=== PATIENT | female | born 1970 | race Caucasian/White ===

== ENCOUNTER 2017-02-13 13:00 | Emergency (ER) | payer MEDICAID, OTHER ==
[~2017-02-13] VITALS: Ht 165.1 cm; Wt 90.7 kg
[~2017-02-13 13:00] MED LIST: ATIVAN2 M1 PO; BENADRYL50 MG PO; CLONAZEPAM2 MG PO; GEODON40 MG PO; HALDOL PO; KLONOPIN2 MG PO; LAMICTAL25 M1 PO; LITHIUM CARBON300 MG PO; LITHIUM CARBON600 MG PO; SEROQUEL200 MG PO; SEROQUEL400 MG PO; TRAZODONE HCL100 MG PO; TYLENOL #31 TAB PO
--- NOTE | 2017-02-13 13:09 | NUR ---
PT IS IN ROOM #2A. DR PENA EVALUATED THE PT.
--- NOTE | 2017-02-13 13:22 | NUR ---
PT WAS D/C TO HOME. D/C INSTRUCTIONS GIVEN TO THE PT.
[2017-02-13 13:23] VITALS: BP 139/86; PULSE 78; RESP 15; O2SAT 98
== END 2017-02-13 13:24 | disposition home or self-care (01) ==
LOC: ER 13:00
DX: M25.571 Pain in right ankle and joints of right foot (principal); G89.29 Other chronic pain; F41.9 Anxiety disorder, unspecified; F31.9 Bipolar disorder, unspecified; F11.23 Opioid dependence with withdrawal; Y92.89 Other specified places as the place of occurrence of the external cause
CPT/HCPCS: 99283; A4663

== ENCOUNTER 2017-03-02 19:59 | Emergency (ER) | payer MEDICAID ==
[~2017-03-02] VITALS: Ht 165.1 cm; Wt 90.7 kg
[~2017-03-02 19:59] MED LIST changes: -ATIVAN2 M1 PO; -BENADRYL50 MG PO; +CLON2TAB PO; -CLONAZEPAM2 MG PO; -GEODON40 MG PO; -HALDOL PO; -KLONOPIN2 MG PO; -LAMICTAL25 M1 PO; +LITH300C2 PO; +LITH600C PO; -LITHIUM CARBON300 MG PO; -LITHIUM CARBON600 MG PO; +LORA2TAB95 PO; +QUET400T PO; -SEROQUEL200 MG PO; -SEROQUEL400 MG PO; -TRAZODONE HCL100 MG PO; -TYLENOL #31 TAB PO
[2017-03-02] MEDS ORDERED: NITROGLYCERIN 0.4 MG/TAB BOTTLE SL ONE ×2 (20:45→20:56)
[2017-03-02] MEDS ORDERED: ASPIRIN 325 MG TABLET PO ONE (20:45)
[2017-03-02 20:56] LABS: BASOPHILS % (AUTO) 0.3 % (0.0-2.0); EOSINOPHILS # (AUTO) 0.3 K/uL (0.0-0.7); EOSINOPHILS % (AUTO) 3.7 % (0.0-7.0); HEMATOCRIT 39.8 % (37-47); HEMOGLOBIN 13.1 G/DL (12.0-16.0); LYMPHOCYTES % (AUTO) 29.3 % (20.5-51.5); MEAN CORPUSCULAR HEMOGLOBIN 29.1 UUG (27.0-31.0); MEAN CORPUSCULAR HGB CONC 33 g/dL (32.0-37.0); MEAN CORPUSCULAR VOLUME 88.9 FL (81.0-99.0); MONOCYTES # (AUTO) 0.6 K/UL (0.1-1.30); MONOCYTES % (AUTO) 8.6 % (0.0-11.0); NEUTROPHILS # (AUTO) 3.9 K/UL (1.8-8.9); NEUTROPHILS % (AUTO) 58.1 % (38.5-71.5); PLATELET COUNT (AUTO) 292 K/UL (150-450); RED BLOOD CELL COUNT(AUTO) 4.48 MIL/UL (4.2-5.4); WHITE BLOOD COUNT (AUTO) 6.8 K/UL (4.0-11.2)
[2017-03-02] MEDS ORDERED: ASPIRIN 325 MG TABLET ONE (20:56)
[2017-03-02 21:07] LABS: CREATININE 0.7 mg/dL (0.6-1.3); POTASSIUM 3.8 mmol/L (3.5-5.1)
[2017-03-02 21:19] LABS: BILIRUBIN,DIRECT 0.1 mg/dL (0.0-0.2); BILIRUBIN,TOTAL 0.2 mg/dL (0.2-1.0); TOTAL PROTEIN, SERUM 7.5 g/dL (6.4-8.2)
[2017-03-02] MEDS ORDERED: GABAPENTIN 300 MG CAPSULE PO ONE (21:45)
--- NOTE | 2017-03-02 21:57 | NUR ---
Patient does not wish to proceed with medical care recommended by Dr. ARIAS. Patient given information related to possible complications, up to and including , which could occur as a result of leaving the hospital at this time. Patient verbalizes understanding of risks involved due to leaving against medical advice. Patient has signed AMA form.
[2017-03-02 21:58] VITALS: BP 98/71
[2017-03-02] MEDS ORDERED: GABAPENTIN 300 MG CAPSULE ONE (21:58)
== END 2017-03-02 21:59 | disposition left against medical advice (07) ==
LOC: ER 20:03
DX: R07.9 Chest pain, unspecified (principal); F31.9 Bipolar disorder, unspecified; F41.9 Anxiety disorder, unspecified; M54.9 Dorsalgia, unspecified; M25.571 Pain in right ankle and joints of right foot; Z88.6 Allergy status to analgesic agent; Z88.8 Allergy status to other drugs, medicaments and biological substances
CPT/HCPCS: 36415; 70030-TC; 71010; 73590; 84703; 85025; 85730; 93005; A4663

== ENCOUNTER 2017-05-17 15:09 | Emergency (ER) | payer MEDICAID ==
[~2017-05-17] VITALS: Ht 165.1 cm; Wt 86.2 kg
--- NOTE | 2017-05-17 15:26 | NUR ---
Patient is seen eating snacks from the ER coffee cart with very good appetite, NAD, pending MD evaluation.
--- NOTE | 2017-05-17 15:52 | NUR ---
Patient discharged to home in stable conditon. Written and verbal after care instructions given to patient. Patient verbalizes understanding of instructions.
== END 2017-05-17 15:53 | disposition home or self-care (01) ==
LOC: ER 15:10
DX: F31.9 Bipolar disorder, unspecified (principal); G47.00 Insomnia, unspecified; F41.9 Anxiety disorder, unspecified
CPT/HCPCS: 99283; A4663

== ENCOUNTER 2017-07-05 12:54 | Emergency (ER) | payer OTHER ==
--- NOTE | 2017-07-05 13:24 | NUR ---
INITIALLY CALLED FOR TRIAGE, NOT IN WAITING ROOM .
== END 2017-07-13 09:11 | disposition left against medical advice (07) ==
LOC: ER 12:54
DX: Z53.21 Procedure and treatment not carried out due to patient leaving prior to being seen by health care provider (principal)

== ENCOUNTER 2017-07-14 10:59 | Emergency (ER) | payer OTHER ==
[~2017-07-14] VITALS: Ht 165.1 cm; Wt 85.3 kg
[2017-07-14] MEDS ORDERED: IBUPROFEN 800 MG TABLET PO ONE (12:15)
[2017-07-14] MEDS ORDERED: IBUPROFEN 800 MG TABLET ONE (12:43)
[2017-07-14 13:12] VITALS: BP 129/89
--- NOTE | 2017-07-14 13:12 | NUR ---
Patient discharged to home in stable conditon. Written and verbal after care instructions given. Patient verbalizes understanding of instructions.pt walks in steady gait, pt says relief of pain
== END 2017-07-14 13:15 | disposition home or self-care (01) ==
LOC: ER 11:18
DX: S93.401A Sprain of unspecified ligament of right ankle, initial encounter (principal); Z88.6 Allergy status to analgesic agent; X50.9XXA Other and unspecified overexertion or strenuous movements or postures, initial encounter; Y93.89 Activity, other specified; Y92.9 Unspecified place or not applicable; Y99.9 Unspecified external cause status
CPT/HCPCS: 73600; 99284; A4663

== ENCOUNTER 2018-02-19 17:17 | Emergency (ER) | payer OTHER ==
[~2018-02-19] VITALS: Ht 165.1 cm; Wt 83.9 kg
[2018-02-19] MEDS ORDERED: HALO10TA13 PO (17:25)
--- NOTE | 2018-02-19 17:25 | NUR ---
Patient is AOx4 and said, "No visitors for me ." All ER staff were notified re: patient's request and preference.
--- NOTE | 2018-02-19 18:00 | NUR ---
Patient is AOx4, respiration:easy, intermittently answers to questions regarding her medical history. Patient is seen holding her hands up at chest level & poses in that position for few seconds, no tremors of extremities or body seen.
[2018-02-19 18:13] LABS: *BILIRUBIN,URIN NEGATIVE (NEGATIVE); *BLOOD, URINE 2+ (NEGATIVE); *CLARITY,URINE CLOUDY (CLEAR); *COLOR,URINE YELLOW (YELLOW); *KETONES,URINE 1+ (NEGATIVE); *PROTEIN,URINE 1+ (NEGATIVE); *UROBILINOGEN,URINE 0.2 E.U./dl (NORMAL); LEUKOCYTE ESTERASE ,URINE 1+ (NEGATIVE); NITRITE, URINE NEGATIVE (NEGATIVE); UGLUCOSE NEGATIVE (NEGATIVE)
[2018-02-19 18:23] LABS: BACTERIA,URINE MODERATE /HPF (NONE SEEN); MUCUS,URINE MANY /LPF (0-FEW); SQUAMOUS EPITHELIAL CELL,UR MANY /HPF (NONE SEEN)
[2018-02-19 18:33] LABS: BASOPHILS % (AUTO) 0.3 % (0.0-2.0); EOSINOPHILS # (AUTO) 0.1 K/uL (0.0-0.7); EOSINOPHILS % (AUTO) 1.1 % (0.0-7.0); HEMATOCRIT 36.6 % (31.2-41.9); HEMOGLOBIN 12.7 g/dL (10.9-14.3); LYMPHOCYTES # (AUTO) 0.9 K/uL (20.0-40.0); LYMPHOCYTES % (AUTO) 12.5 % (20.5-51.5); MEAN CORPUSCULAR HEMOGLOBIN 30.4 uug (24.7-32.8); MEAN CORPUSCULAR HGB CONC 35 g/dL (32.3-35.6); MEAN CORPUSCULAR VOLUME 87.8 fL (75.5-95.3); MONOCYTES # (AUTO) 0.5 K/uL (2.0-10.0); MONOCYTES % (AUTO) 6.8 % (0.0-11.0); NEUTROPHILS # (AUTO) 5.6 K/uL (1.8-8.9); NEUTROPHILS % (AUTO) 79.3 % (38.5-71.5); PLATELET COUNT (AUTO) 324 K/uL (179-408); RED BLOOD CELL COUNT(AUTO) 4.17 MIL/uL (3.63-4.92)
--- NOTE | 2018-02-19 18:33 | NUR ---
Patient now gave permission for visitors. Patient's spouse is now at bedside.
[2018-02-19 18:39] LABS: CARBON DIOXIDE 23 mmol/L (21-32); CHLORIDE 101 mmol/L (98-107); CREATININE 0.7 mg/dL (0.6-1.3); GLUCOSE 121 mg/dL (74-106); UREA NITROGEN, BLOOD 4 mg/dL (7-18)
[2018-02-19 18:44] LABS: ALANINE AMINOTRANSFERASE 15 U/L (14-59); ALKALINE PHOSPHATASE 115 U/L (50-136); ASPARTATE AMINOTRANSFERASE 14 U/L (15-37); BILIRUBIN,DIRECT 0.1 mg/dL (0.0-0.2); BILIRUBIN,TOTAL 0.4 mg/dL (0.2-1.0); TOTAL PROTEIN, SERUM 7.7 g/dL (6.4-8.2)
[2018-02-19 18:47] LABS: ACETAMINOPHEN < 2.0 ug/mL (10-30)
--- NOTE | 2018-02-19 19:07 | NUR ---
REPORT TAKEN FROM MARINA RN. ASSUMING PT CARE AT THIS TIME. PT TAKEN TO CT VIA WHEELCHAIR. NO ACUTE DISTRESS NOTED AT THIS TIME.
[2018-02-19 19:09] LABS: THYROID STIMULATING HORMONE 1.689 mIU/mL (0.358-3.740)
[2018-02-19 19:17] LABS: ETHANOL < 3 MG/DL (0-0)
[2018-02-19 19:18] LABS: *AMPHETAMINE, URINE NEGATIVE (NEGATIVE); *BARBITURATE, URINE NEGATIVE (NEGATIVE); *CANNABINOID, URINE NEGATIVE (NEGATIVE); *COCCAINE, URINE NEGATIVE (NEGATIVE); *OPIATE, URINE POSITIVE (NEGATIVE); *PHENCYCLIDINE SCREEN,URINE NEGATIVE (NEGATIVE)
--- NOTE | 2018-02-19 19:29 | NUR ---
PT BACK IN ROOM FROM CT. NO ACUTE EVENTS NOTED.
--- NOTE | 2018-02-19 19:57 | NUR ---
CALL PLACED TO [facility] FOR CRISIS EVAL. WAS TOLD TO OBTAIN HCG RESULTS FIRST.
[2018-02-19 20:11] LABS: *URINE HCG, QUAL NEGATIVE (NEGATIVE)
--- NOTE | 2018-02-19 20:26 | NUR ---
MARISA UPDATED W/ RESULTS OF TEST.
[2018-02-19] MEDS ORDERED: OLANZAPINE 10 MG VIAL IM ONE ×2 (21:00→21:15)
[2018-02-19] MEDS ORDERED: LORAZEPAM 2 MG/1 ML VIAL IM ONE (21:00)
[2018-02-19] MEDS ORDERED: LORAZEPAM 2 MG/1 ML VIAL ONE (21:15)
--- NOTE | 2018-02-19 21:26 | NUR ---
Patient discharged to home in stable conditon. Written and verbal after care instructions given. Patient verbalizes understanding of instructions. Pt accompanied by . No distress noted. Pt took all personal belongings.
[2018-02-19 21:30] VITALS: BP 144/86
== END 2018-02-19 21:31 | disposition home or self-care (01) ==
LOC: ER 17:18
DX: F31.9 Bipolar disorder, unspecified (principal); F41.9 Anxiety disorder, unspecified; G89.29 Other chronic pain; M54.9 Dorsalgia, unspecified; Z88.5 Allergy status to narcotic agent; Z88.8 Allergy status to other drugs, medicaments and biological substances; Z79.899 Other long term (current) drug therapy
CPT/HCPCS: 36415; 70030-TC; 70450; 71045; 80307; 83605; 84443; 84703; 85025; 85730; 87040; 87086; 93005; A4663; G0480; G0480-TC; J2060; J2358